=== PATIENT | male | born 1940 | race Caucasian/White ===

== ENCOUNTER 2018-08-26 14:36 | Inpatient (IN) | payer MEDICARE, SELFPAY | END 2018-08-30 15:05 | DRG 872 | PROVIDERS: Admitting Provider Internal Medicine; Emergency Provider Emergency Medicine; PCP Family Medicine; Visit Provider Internal Medicine | DX: A41.59 Other Gram-negative sepsis (principal); N39.0 Urinary tract infection, site not specified; B96.4 Proteus (mirabilis) (morganii) as the cause of diseases classified elsewhere; F03.90 Unspecified dementia, unspecified severity, without behavioral disturbance, psychotic disturbance, mood disturbance, and anxiety; E11.42 Type 2 diabetes mellitus with diabetic polyneuropathy; D64.9 Anemia, unspecified; E78.5 Hyperlipidemia, unspecified; I25.10 Atherosclerotic heart disease of native coronary artery without angina pectoris; I10 Essential (primary) hypertension; N40.1 Benign prostatic hyperplasia with lower urinary tract symptoms; R33.9 Retention of urine, unspecified; F41.9 Anxiety disorder, unspecified; F32.9 Major depressive disorder, single episode, unspecified; E03.9 Hypothyroidism, unspecified; G47.33 Obstructive sleep apnea (adult) (pediatric); K57.90 Diverticulosis of intestine, part unspecified, without perforation or abscess without bleeding; M19.90 Unspecified osteoarthritis, unspecified site; I25.2 Old myocardial infarction; Z95.5 Presence of coronary angioplasty implant and graft; Z79.4 Long term (current) use of insulin; Z79.01 Long term (current) use of anticoagulants; Z79.82 Long term (current) use of aspirin | CPT/HCPCS: 36415; 36600; 70450; 71046; 80048; 80053; 81001; 82375; 82805; 83050; 83605; 83880; 84484; 85025; 85027; 85610; 85730; 87040; 87077; 87086; 87088; 87186; 87804; 93005; 96361; 96365; 97110; 97116; 97161; 97165; 97530; 97535; 99285; A9270; G0378; G8978; G8979; G8987; G8988; J0696; J1815; J7030 ==